=== PATIENT | female | born 1940 | race Caucasian/White ===

== ENCOUNTER 2020-01-15 14:20 | Observation (INO) ==
[2020-01-15] MEDS ORDERED: *HR* OxyCODONE Immed Rel 5 MG TABLET PO PRN (16:01)
[2020-01-15] MEDS ORDERED: Ondansetron ODT 4 MG TAB.RAPDIS SL PRN (16:02)
[2020-01-15] MEDS ORDERED: *HR* LORazepam 1 MG TABLET PO PRN (16:03)
[2020-01-15] MEDS ORDERED: Dextrose Gel 15 GM/37.5 ML TUBE PO PRN (16:04)
[2020-01-15] MEDS ORDERED: *HR* HYDROmorphone (PF) 1 MG/ML SYRINGE IVP PRN (16:06)
[2020-01-15] MEDS ORDERED: amLODIPine 5 MG TABLET PO SCH (16:15)
[2020-01-15] MEDS: Ringers Solution, Lactated 1,000 ML IVC SCH (16:35)
[2020-01-15] MEDS: Insulin LISPRO 300 UNITS/3 ML VIAL SQ SCH ×2 (16:37→22:54)
[2020-01-15] MEDS: polyethylene glycoL 3350 17 GM POWD.PACK PO SCH (22:06)
[2020-01-15] MEDS: Gabapentin 400 MG CAPSULE PO SCH (22:06)
[2020-01-16 02:50] LABS: Basophils % 0.6 %; Eosinophils # 0.1 K/mcL (0.0-0.6); Eosinophils % 1.4 %; Hemoglobin 11.2 g/dL (11.5-15.4); Immature Granulocytes % 0.4 % (0-4); Lymphocytes # 1.4 K/mcL (0.6-4.6); Lymphocytes % 19.4 %; Mean Corpuscular HGB Conc 31.1 g/dL (31.6-35.5); Mean Corpuscular Hemoglobin 24.3 pg (28.0-33.3); Mean Corpuscular Volume 78.3 fL (83.0-100.0); Mean Platelet Volume 9.4 fL (9.4-12.4); Monocytes # 0.5 K/mcL (0.0-1.3); Monocytes % 6.3 %; Neutrophils # 5.2 K/mcL (1.6-8.9); Platelet Count 170 K/mcL (140-400); Red Cell Distribution Width 14.6 % (11.5-14.5); Segmented Neutrophils % 71.9 %; White Blood Count 7.3 K/mcL (4.3-11.1)
[2020-01-16] MEDS: Ringers Solution, Lactated 1,000 ML IVC SCH (02:54)
[2020-01-16 03:07] LABS: BUN/Creatinine Ratio 20 (6-26); Blood Urea Nitrogen 16 mg/dL (8-23); Calcium 9.2 mg/dL (8.6-10.3); Carbon Dioxide 26 mEq/L (23-29); Chloride 105 mEq/L (98-107); Glucose 149 mg/dL (70-105); Osmolality,Calculated 284 (280-300); Potassium 3.3 mEq/L (3.5-5.1); Sodium 135 mEq/L (136-145); eGFR For African Americans > 60 (> 60); eGFR For Non-African Americans > 60 (> 60)
[2020-01-16] MEDS: hydroCHLOROthiazide 25 MG TABLET PO SCH (08:28)
[2020-01-16] MEDS: amLODIPine 5 MG TABLET PO SCH (08:28)
[2020-01-16] MEDS: Gabapentin 400 MG CAPSULE PO SCH ×2 (08:28→21:03)
[2020-01-16] MEDS: Loratadine 10 MG TABLET PO SCH (08:28)
[2020-01-16] MEDS: lisinopriL 20 MG TABLET PO SCH (08:28)
[2020-01-16] MEDS: atenoloL 50 MG TABLET PO SCH (08:28)
[2020-01-16] MEDS: polyethylene glycoL 3350 17 GM POWD.PACK PO SCH ×2 (08:36→21:04)
[2020-01-16] MEDS: Insulin LISPRO 300 UNITS/3 ML VIAL SQ SCH ×4 (08:39→21:04)
[2020-01-16] MEDS ORDERED: Perflutren Lipid Microsphere 1.3 ML in 0.9 % Sodium Chloride 8.7 ML IVP ONE (18:47)
[2020-01-16] MEDS: Acetaminophen 325 MG TABLET PO PRN (23:01)
[2020-01-17] MEDS: *HR* Enoxaparin 40 MG/0.4 ML SYRINGE SQ SCH (05:17)
[2020-01-17] MEDS: hydroCHLOROthiazide 25 MG TABLET PO SCH (08:18)
[2020-01-17] MEDS: amLODIPine 5 MG TABLET PO SCH (08:18)
[2020-01-17] MEDS: lisinopriL 20 MG TABLET PO SCH (08:18)
[2020-01-17] MEDS: Gabapentin 400 MG CAPSULE PO SCH ×2 (08:18→21:18)
[2020-01-17] MEDS: Insulin LISPRO 300 UNITS/3 ML VIAL SQ SCH ×4 (08:18→21:18)
[2020-01-17] MEDS: polyethylene glycoL 3350 17 GM POWD.PACK PO SCH ×3 (08:19→21:21)
[2020-01-17] MEDS: atenoloL 50 MG TABLET PO SCH (08:19)
[2020-01-17] MEDS: Loratadine 10 MG TABLET PO SCH (08:19)
[2020-01-17] MEDS ORDERED: Naloxone 0.4 MG/ML INJ IVP PRN (09:27)
[2020-01-18] MEDS: *HR* Enoxaparin 40 MG/0.4 ML SYRINGE SQ SCH (05:22)
[2020-01-18] MEDS: hydroCHLOROthiazide 25 MG TABLET PO SCH ×3 (07:24→07:30)
[2020-01-18] MEDS: polyethylene glycoL 3350 17 GM POWD.PACK PO SCH ×2 (07:24→21:14)
[2020-01-18] MEDS: atenoloL 50 MG TABLET PO SCH (07:24)
[2020-01-18] MEDS: Loratadine 10 MG TABLET PO SCH (07:24)
[2020-01-18] MEDS: Gabapentin 400 MG CAPSULE PO SCH ×2 (07:24→21:16)
[2020-01-18] MEDS: lisinopriL 20 MG TABLET PO SCH (07:24)
[2020-01-18] MEDS: amLODIPine 5 MG TABLET PO SCH (07:24)
[2020-01-18] MEDS: carvediloL 25 MG TABLET PO SCH ×2 (07:29→16:51)
[2020-01-18] MEDS: Insulin LISPRO 300 UNITS/3 ML VIAL SQ SCH ×4 (07:29→21:16)
[2020-01-19] MEDS: *HR* Enoxaparin 40 MG/0.4 ML SYRINGE SQ SCH (05:26)
[2020-01-19] MEDS: lisinopriL 20 MG TABLET PO SCH (08:37)
[2020-01-19] MEDS: amLODIPine 5 MG TABLET PO SCH (08:37)
[2020-01-19] MEDS: Loratadine 10 MG TABLET PO SCH (08:37)
[2020-01-19] MEDS: Gabapentin 400 MG CAPSULE PO SCH ×2 (08:37→21:56)
[2020-01-19] MEDS: hydroCHLOROthiazide 25 MG TABLET PO SCH (08:37)
[2020-01-19] MEDS: Insulin LISPRO 300 UNITS/3 ML VIAL SQ SCH ×4 (08:38→21:56)
[2020-01-19] MEDS: polyethylene glycoL 3350 17 GM POWD.PACK PO SCH ×2 (08:44→21:55)
[2020-01-19] MEDS: carvediloL 25 MG TABLET PO SCH ×2 (12:43→16:53)
[2020-01-20] MEDS: *HR* Enoxaparin 40 MG/0.4 ML SYRINGE SQ SCH (05:49)
[2020-01-20 06:50] LABS: Calcium 8.4 mg/dL (8.6-10.3); Magnesium 2.1 mg/dL (1.6-2.6); Potassium 3.5 mEq/L (3.5-5.1)
[2020-01-20] MEDS ORDERED: Ringers Solution, Lactated 1,000 ML IVC ONE (07:42)
[2020-01-20] MEDS: lisinopriL 20 MG TABLET PO SCH (08:34)
[2020-01-20] MEDS: Loratadine 10 MG TABLET PO SCH (08:34)
[2020-01-20] MEDS: amLODIPine 5 MG TABLET PO SCH (08:34)
[2020-01-20] MEDS: hydroCHLOROthiazide 25 MG TABLET PO SCH (08:34)
[2020-01-20] MEDS: carvediloL 25 MG TABLET PO SCH ×2 (08:34→17:28)
[2020-01-20] MEDS: Gabapentin 400 MG CAPSULE PO SCH ×2 (08:34→20:15)
[2020-01-20] MEDS: Insulin LISPRO 300 UNITS/3 ML VIAL SQ SCH ×4 (08:39→20:15)
[2020-01-20] MEDS: Acetaminophen 325 MG TABLET PO PRN ×2 (08:42→21:57)
[2020-01-20] MEDS: polyethylene glycoL 3350 17 GM POWD.PACK PO SCH ×2 (12:08→20:15)
[2020-01-21] MEDS ORDERED: *HR* Enoxaparin 30 MG/0.3 ML SYRINGE SQ SCH (06:00)
[2020-01-21 06:37] LABS: Calcium 8.5 mg/dL (8.6-10.3); Potassium 3.9 mEq/L (3.5-5.1)
[2020-01-21] MEDS: lisinopriL 20 MG TABLET PO SCH (08:23)
[2020-01-21] MEDS: Gabapentin 400 MG CAPSULE PO SCH (08:23)
[2020-01-21] MEDS: Loratadine 10 MG TABLET PO SCH (08:24)
[2020-01-21] MEDS: amLODIPine 5 MG TABLET PO SCH (08:24)
[2020-01-21] MEDS: carvediloL 25 MG TABLET PO SCH (08:24)
[2020-01-21] MEDS: hydroCHLOROthiazide 25 MG TABLET PO SCH (08:24)
[2020-01-21] MEDS: Insulin LISPRO 300 UNITS/3 ML VIAL SQ SCH ×2 (08:25→12:35)
[2020-01-21] MEDS: polyethylene glycoL 3350 17 GM POWD.PACK PO SCH (08:29)
[2020-01-21 16:06] VITALS: BP 119/58
== END 2020-01-21 17:36 ==
LOC: 3BNU → SUATTDRO 15:27
PROVIDERS: ADMIT Family Medicine; ATTEND Internal Medicine

== ENCOUNTER 2022-03-30 17:25 | Observation (INO) ==
[2022-03-30 20:57] LABS: Basophils % 0.4 %; Eosinophils # 0.1 K/mcL (0.0-0.6); Eosinophils % 1.5 %; Hematocrit 31.3 % (35.3-44.9); Hemoglobin 9.9 g/dL (11.5-15.4); Immature Granulocytes % 0.5 % (0-4); Lymphocytes # 1.5 K/mcL (0.6-4.6); Lymphocytes % 19.9 %; Mean Corpuscular HGB Conc 31.6 g/dL (31.6-35.5); Mean Corpuscular Hemoglobin 24.3 pg (28.0-33.3); Mean Corpuscular Volume 76.9 fL (83.0-100.0); Mean Platelet Volume 9.1 fL (9.4-12.4); Monocytes # 0.5 K/mcL (0.0-1.3); Monocytes % 6.6 %; Neutrophils # 5.2 K/mcL (1.6-8.9); Platelet Count 210 K/mcL (140-400); Red Blood Count 4.07 M/mcL (3.82-4.97); Red Cell Distribution Width 14.6 % (11.5-14.5); Segmented Neutrophils % 71.1 %; White Blood Count 7.4 K/mcL (4.3-11.1)
[2022-03-30] MEDS ORDERED: *HR* Dextrose 50 % in Water (Syg) 50 ML SYRINGE ONE (20:57)
[2022-03-30] MEDS ORDERED: *HR* Dextrose 50 % in Water (Syg) 50 ML SYRINGE IVP ONE (21:02)
[2022-03-30 21:29] LABS: Alanine Aminotransferase 15 Units/L (7-52); Albumin 3.4 g/dL (3.5-5.7); Albumin/Globulin Ratio 1.3 (1.1-2.2); Alkaline Phosphatase 49 Units/L (34-104); Aspartate Amino Transferase 24 Units/L (13-39); BUN/Creatinine Ratio 20 (6-26); Bilirubin,Total 0.3 mg/dL (0.3-1.0); Blood Urea Nitrogen 26 mg/dL (8-23); Calcium 8.2 mg/dL (8.6-10.3); Carbon Dioxide 27 mEq/L (23-29); Chloride 97 mEq/L (98-107); Ethanol < 10 mg/dL (Less than 10); Globulin 2.7 g/dL (2.4-3.5); Glucose 40 mg/dL (70-105); Lipase 28 Units/L (11-82); Osmolality,Calculated 270 (280-300); Potassium 4.7 mEq/L (3.5-5.1); Sodium 129 mEq/L (136-145); Total Protein 6.1 g/dL (6.4-8.9); Troponin I < 0.03 ng/mL (< 0.04); eGFR For African Americans 48 (> 60); eGFR For Non-African Americans 40 (> 60)
[2022-03-30 21:32] LABS: Influenza A PCR Negative (Negative); Influenza B PCR Negative (Negative); Resp. Syncytial Virus PCR Negative (Negative)
[2022-03-30 21:37] LABS: SARS-CoV-2 by PCR (In House) Negative (Negative)
[2022-03-30 22:00] LABS: Bacteria,Urine Few per hpf (None-Few); Bilirubin,Urine Negative (Negative); Blood,Urine Moderate (Negative); Clarity,Urine Turbid (Clear); Color,Urine Light-Yellow (Yellow); Glucose,Urine (UA) 50 mg/dL (Normal); Ketones,Urine Negative (Negative); Leukocyte Esterase,Urine Large (Negative); Mucus,Urine Few per lpf (None-Few); Nitrite,Urine Negative (Negative); Protein,Urine >=300 mg/dL (Neg-Trace); RBC,Urine 15-30 per hpf (0-3); Squamous Epithelial Cell,Urine Few per hpf (None-Few); Urobilinogen,Urine Normal (Normal); WBC,Urine 50-100 per hpf (0-3)
[2022-03-30] MEDS ORDERED: cefTRIAXone 1,000 MG in Water for inj. (sterile) 10 ML IVP ONE (22:00)
[2022-03-30] MEDS ORDERED: D5% in 0.9% NACL 1,000 ML IVC SCH (22:15)
[2022-03-30] MEDS ORDERED: *HR* LORazepam 2 MG/ML VIAL IVP ONE (22:36)
[2022-03-30] MEDS ORDERED: Ondansetron ODT 4 MG TAB.RAPDIS SL PRN (23:14)
[2022-03-30] MEDS ORDERED: Melatonin 3 MG TABLET PO PRN (23:14)
[2022-03-30] MEDS ORDERED: Naloxone 0.4 MG/ML INJ IVP PRN (23:14)
[2022-03-31] MEDS: D10% in Water 500 ML IVC SCH ×2 (01:22→11:15)
[2022-03-31 02:01] LABS: Basophils % 0.3 %; Eosinophils # 0.1 K/mcL (0.0-0.6); Eosinophils % 1.6 %; Hematocrit 29.7 % (35.3-44.9); Hemoglobin 9.2 g/dL (11.5-15.4); Immature Granulocytes % 0.6 % (0-4); Lymphocytes # 1.2 K/mcL (0.6-4.6); Lymphocytes % 18.2 %; Mean Corpuscular Volume 77.3 fL (83.0-100.0); Mean Platelet Volume 9.2 fL (9.4-12.4); Monocytes # 0.5 K/mcL (0.0-1.3); Monocytes % 7.1 %; Neutrophils # 4.9 K/mcL (1.6-8.9); Platelet Count 201 K/mcL (140-400); Red Blood Count 3.84 M/mcL (3.82-4.97); Red Cell Distribution Width 14.6 % (11.5-14.5); Segmented Neutrophils % 72.2 %; White Blood Count 6.7 K/mcL (4.3-11.1)
[2022-03-31 02:03] LABS: VBG HCO3 26 mEq/L (21-27); VBG PCO2 44 mmHg (41-51); VBG PH 7.38 pH Units (7.32-7.42); VBG PO2 73 mmHg (25-50)
[2022-03-31 02:14] LABS: Calcium 7.9 mg/dL (8.6-10.3); Magnesium 1.9 mg/dL (1.6-2.6); Potassium 4.6 mEq/L (3.5-5.1)
[2022-03-31 02:29] LABS: Thyroid Stimulating Hormone 2.421 mcIU/mL (0.340-5.600)
[2022-03-31 02:40] LABS: Folate 7.9 ng/mL (3.0-16.0)
[2022-03-31] MEDS: Ipratropium/Albuterol Neb 3 ML IH SCH ×3 (03:32→11:39)
[2022-03-31] MEDS ORDERED: Dextrose 4 GM Chewable Tablets PO PRN ×2 (06:33)
[2022-03-31] MEDS ORDERED: D5% in Water 1,000 ML IVC PRN (06:33)
[2022-03-31] MEDS ORDERED: *HR* Dextrose 50 % in Water (Syg) 50 ML SYRINGE IVP PRN (06:33)
[2022-03-31] MEDS ORDERED: predniSONE 20 MG TABLET PO SCH (09:00)
[2022-03-31] MEDS ORDERED: cefTRIAXone 1,000 MG in 0.9 % Sodium Chloride Mini Bag 100 ML IVPB SCH (09:00)
[2022-03-31] MEDS ORDERED: Chlorhexidine Rinse 15 ML MOUTHWASH MM SCH (09:00)
[2022-03-31] MEDS ORDERED: carvediloL 25 MG TABLET PO SCH (09:49)
[2022-03-31] MEDS ORDERED: Furosemide 20 MG/2 ML VIAL IVP ONE (09:50)
[2022-03-31] MEDS ORDERED: Budesonide/Formoterol 160/4.5 1 PUFF INH IH SCH (10:00)
[2022-03-31] MEDS ORDERED: amLODIPine 5 MG TABLET PO SCH (10:00)
[2022-03-31 11:12] VITALS: BP 175/73; PULSE 72; TEMP 97.9
[2022-03-31 14:51] VITALS: O2SAT 95
== END 2022-03-31 14:37 | disposition home or self-care (01) ==
LOC: 2ANU 17:25 → EMEROOARM 17:25 → SUATTDRO 22:27 → 2ANU 23:15
PROVIDERS: ADMIT Internal Medicine; ATTEND Internal Medicine